=== PATIENT | female | born 1940 | race Caucasian/White ===

== ENCOUNTER 2019-09-28 16:42 | Inpatient (IN) | payer OTHER, MEDICARE ==
[~2019-09-28] VITALS: Ht 152.4 cm; Wt 56.6 kg
[2019-09-28 16:55] VITALS: BP 115/52
[2019-09-28 17:14] LABS: URINE BILIRUBIN NEGATIVE (Negative); URINE BLOOD NEGATIVE (Negative); URINE CLARITY CLEAR; URINE COLOR YELLOW; URINE GLUCOSE-RANDOM* NEGATIVE (Negative); URINE KETONES NEGATIVE (Negative); URINE LEUKOCYTES-REFLEX TRACE (Negative); URINE NITRITE-REFLEX NEGATIVE (Negative); URINE PROTEIN (DIPSTICK) NEGATIVE (Negative); URINE SPECIFIC GRAVITY 1.025 (1.005-1.035); URINE UROBILINOGEN 0.2 E.U./dl (0.2-1.0)
[2019-09-28 17:17] LABS: ABSOLUTE NEUTROPHILS 3.7 thou/uL (1.4-8.2); BASOPHILS 0.7 % (0.0-2.0); EOSINOPHILS 0.8 % (0.0-3.0); HEMATOCRIT 36.8 % (37.0-47.0); HEMOGLOBIN 12.1 gm/dL (12.0-15.0); LYMPHOCYTES 25.6 % (24.0-44.0); MCH 30.1 pg (26.0-34.0); MCV 91.1 fL (80.0-100.0); MONOCYTES 10.4 % (1.0-8.0); PLATELET COUNT 296 thou/uL (150-400); POLYS 62.5 % (36.0-66.0); RBC 4.04 mil/uL (4.20-5.00); RDW 13.1 % (10.5-14.5)
[2019-09-28 17:25] LABS: CALCIUM 9.5 mg/dL (8.5-10.1); CREATININE 0.8 mg/dL (0.6-1.0); POTASSIUM 3.4 mmol/L (3.5-5.1)
[2019-09-28 17:36] LABS: ALBUMIN 3.3 g/dL (3.4-5.0); TOTAL BILIRUBIN 0.4 mg/dL (<0.1-1.0); TOTAL PROTEIN 7.6 g/dL (6.4-8.2)
[2019-09-28 20:31] VITALS: BP 136/65
[2019-09-28 20:47] VITALS: BP 148/70
[2019-09-28 21:00] VITALS: BP 148/70
[2019-09-28] MEDS ORDERED: LIPITOR 20 MG T20 M1 PO (21:17)
[2019-09-28] MEDS ORDERED: NORVASC 2.5 MG2.5 M1 PO (21:17)
[2019-09-28] MEDS ORDERED: KEFLEX500 M2 PO (21:18)
[2019-09-28] MEDS ORDERED: NADOLOL 40 MG T40 M1 PO (21:19)
[2019-09-28] MEDS ORDERED: REMERON30 MG PO (21:19)
[2019-09-28] MEDS ORDERED: TRAZODONE HCL50 MG PO (21:20)
[2019-09-28] MEDS ORDERED: RISPERDAL0.5 MG PO (21:21)
[2019-09-28] MEDS ORDERED: B-12 DOTS500 MCG PO (21:21)
[2019-09-28] MEDS ORDERED: ACIDOPHILUS LA1 EAC1 PO (21:21)
--- NOTE | 2019-09-28 22:28 | NUR ---
Patient admitted from [facility] ED for eval and tx due to increased confusion, screaming, rubbing her arms/legs, anxiety, depression and refusing to take her medications. Patient arrived to the unit with friend Marisol and nutrition tech by ambulation. Patient appeared anxious upon arrival. Asking Marisol about her clothing several times, asking to use the phone, making several complaints about the clothing available on the unit. Marisol re-enforced that she will be visiting in the AM and bringing her clothing. Patient needed distracted while nutrition tech walked Marisol off the unit. Patient standing with her arms crossed, rubbing her arms continuously. Patient walked to her room to complete assessment. Patient alert and oriented x4. Denies anxiety, depression, SI/HI/AH/VH. Patient visibly anxious. Patient irritable, frustrated and labile during assessment. Nurse would ask a question then patient would interupt and demand socks, drink, new pants, Kleenex, etc. Nurse told patient several times that after assessment, nurse would provide her with hygiene products and new clothing. After assessment, nurse provided patient with all standard hygiene products and clothing. Patient then complained about hospital pants and gown provided. Doesn't appear that patient is pleased with anything provided this evening. When asked why patient was here, she stated that she did not take her medications when she got home from d/c on 09/25/19 on this unit. Nurse asked patient if she felt better during admission when she took her medicine, patient said yes. Nurse asked why she didn't take the medication at home. Patient responded "I just didn't want to". Patient stubborn and sarcastic during assessment. Dr. Gutierrez provided admission orders. HS medication was provided to patient. Patient stated nurse was trying to kill her and needed to learn about how some medications aren't supposed to be taken together. Patient educated that Dr. Gutierrez provided the medication orders and is well aware of how medications interact. Patient resistant but did take medications. [place] thoughts noted, blunted/labile/suspicious affect. Patient has been forgetful at times. Patient provided cup of ice water. As nurse was leaving her room, patient stated "you go get me water, I drink a lot!". Patient educated that her water has already been provided and is sitting on her nightstand. Patient scoffed then layed down in bed. Denies pain or discomfort, surprisingly. Patient fixated on diagnosis of interstitial cystitis during last admission and her chronic pain. Patient did sign paperwork for admission despite being verbally opposed to admission. Patient resting quietly in bed at this time.
--- NOTE | 2019-09-29 08:47 | NUR ---
SW completed the intake assessment and TP. Pt is well known to this conventional underwriter from her previous admission. Pt refused to follow the discharge recomendations . It will be recomended this admission for AL placement in a memory care unit.
[2019-09-29 09:50] VITALS: BP 155/65
--- NOTE | 2019-09-29 11:10 | NUR ---
ASSUMED CARE AT 0700 THIS MORNING. PT. UP FOR MEALS. SHE TOOK HER MEDS WITH SOME STAFF INSISTANCE. LATER SHE COMPLAINED SHE DID NOT LIKE THE WAY THE MEDICATIONS MADE HER FEEL. HER ROOMMATE, MOSHE, VISITED AT MORNING VISITING TIME AND BROUGHT SOME CLOTHING FOR THE PATIENT. I TALKED TO BOTH OF THE WOMEN THAT 2 OUTFITS IS ALL THAT IS NEEDED HERE, SHE WOULD NOT BE HERE THAT LONG. ALSO, THE LOCKERS ARE VERY LIMITED IN SPACE AND WE WOULD NOT HOUSE MORE THAN 2 OUTFITS. PT. IS NOT REALLY ACCEPTING OF HER ACCOMODATIONS TODAY. SHE IS REQUESTING A PRIVATE ROOM. IT WAS EXPLAINED TO HER THAT THIS PLACE HAS LIMITED ROOMS AND PRIVATE ROOMS ARE NOT DO-ABLE.
[2019-09-29 11:16] VITALS: BP 155/65
--- NOTE | 2019-09-29 15:50 | NUR ---
Sw spoke with pt this am to inlcude her in her d/c plans. later pt's friend and roomate stated they did not want her to know. Sw reported to them that this pt is able to understand and needs to know what the plans are. Marisol and her friend are demanding of time and require constant redirection. Sw provided them with a list of AL with memory care and suggested they start looking as this pt will likely d/c Wednesday or Wed at the latest.
[2019-09-29 19:30] VITALS: BP 100/53
--- NOTE | 2019-09-30 00:33 | NUR ---
Care assumed of patient at 1915: Patient seated in her room at start of shift. Patient alert and oriented x4. Presents with blunted affect, depressed mood. Patient originally calm, pleasant and cooperative. Patient questioned if she had a "bad attitude or was disrespectful" during admission process the previous night. Patient then apologized if she caused any trouble to this nurse. This was good insight as to previous behaviors. Patient asked to come to dayroom for HS snack and socialization before bed. Patient was compliant in coming to the dayroom but isolated herself to a table and did not interact with any staff or peers. Patient became more irritable and labile as the night progressed. Patient declined HS snack. Denies pain or discomfort. Denies SI/HI/AH/VH. No s/s of delusional or paranoia behaviors observed. Patient actually denies ever having any suicidal thoughts to this nurse. She stated that she "just wanted to be heard". When asked what she wanted to be "heard", she stated "oh, you know". Then declined to answer any further questions. Avoidance of thoughts and feelings this evening. Patient provided HS medication. Patient stated the doctors are trying to kill her and if she "takes all these medications" she will sleep for days. However, patient stated she did not sleep well last night. Patient did take HS medication but was resistant in doing so. Patient was able to fall to sleep without difficulty and appears to be resting at this time. Patient has been up a couple times pacing her room or using the bathroom thus far this shift.
[2019-09-30 08:00] VITALS: BP 119/64
--- NOTE | 2019-09-30 08:30 | NUR ---
PT UP WALKING AROUND THE UNIT. ENCOURAGED PT TO SIT DOWN TO EAT. PT STATED THAT IS THE PROBLEM IS NOT EATING. PT TOOK MEDS WITHOUT ANY ISSUES. PT WORRIED ABOUT HER HAIR IS FALLING OUT, APPEARS TO BE THIN HAIR NO HAIR LOSS. PT THINKS ITS DUE TO MEDICATION.
[2019-09-30 09:12] VITALS: BP 119/64
--- NOTE | 2019-09-30 11:00 | NUR ---
PT FRIEND MOSHE CAME AND SEEN HER. MOSHE FIXED PT HAIR. PT STILL UPSET ABOUT HER HAIR BEING THIN.
[2019-09-30 20:54] VITALS: BP 137/69
[2019-09-30 21:33] VITALS: BP 137/69
--- NOTE | 2019-09-30 22:25 | NUR ---
185 RESUMMED CARE FROM DAY SHIFT, PATIENT IN DAY ROOM CALM COOPERATIVE. PATIENT ATE SNACK TOOK MEDICATION WITHOUT INCIDENCE, PATIENT WENT TO ROOM AND WENT TO BED. WILL CONTINUE TO MONITOR FOR SAFETY AND BEHAVIORS.
[2019-10-01 07:39] VITALS: BP 122/63
[2019-10-01 08:10] VITALS: BP 122/63
--- NOTE | 2019-10-01 09:07 | NUR ---
PT WALKING AROUND THE UNIT. PT WORRIED ABOUT GETTING A SHOWER AND FIXING HER HAIR BEFORE MOSHE COMES. PT STATED MOSHE WILL NOT DO HER HAIR AND SHE WILL BE MAD. REASURED PT THAT HER HAIR WAS DONE YESTERDAY BY MOSHE.
--- NOTE | 2019-10-01 15:33 | NUR ---
Prince spoke with marisol about the d/c plan and she reported that they would like the referrral sent to [facility] but didnt knonw which one. Prince called [facility] and spoke with Lexy and asked her to reach out the family and discuss memory care. Marisol understands the urgency to find placement. She is wants to meet with Dr Oconnell on Wednesday at 11am. Prince will try to facilitate this on Wednesday. Prince sent the referal to [facility] and [facility].
[2019-10-01 19:56] VITALS: BP 114/66
[2019-10-01 23:27] VITALS: BP 114/66
--- NOTE | 2019-10-02 02:17 | NUR ---
PATIENT HAS BEEN IN BED SINCE 1900. SHE DID AWAKE FOR HS MEDS AND ASSESSMENT. SHE HAS BEEN CALM AND COOPERATIVE. SHE DENIES SI/HI. SHE DIDN'T ASK ABOUT WHAT HER MEDS WERE TONIGHT. SHE WAS IN A HURRY TO GET BACK TO SLEEP. PATIENT HAS BEEN SLEEPING TONIGHT. SHE IS INDEPENDENT WITH CARES. CONTINUING TO MONITOR WITH REGULAR ROUNDING AND PRN NEEDED.
[2019-10-02 09:08] VITALS: BP 117/65
[2019-10-02 10:01] VITALS: BP 117/65
--- NOTE | 2019-10-02 11:07 | NUR ---
11:05 RESUMMED CARE FROM OVERNIGHT SHIFT AT 0645 AM, PATIENT UP IN DAY ROOM. PATIENT ATE BREAKFAST AND TOOK MEDICATION WITHOUT INCIDENCE. PATIENT LIKE HER MEDICATION TO BE IDENTIFIED BEFORE SHE TAKES THEM. PATIENT COOPERATIVE, CALM PARTICIPATES IN GROUPS. PATIENT'S FRIEND CAME TO DO HAIR DURING VISITING HOURS, PATIENT DENIES ANY SI/HI AT PRESENT. WILL CONTINUE TO MONITOR PATIENT FOR SAFETY AND BEHAVIORS.
--- NOTE | 2019-10-02 14:09 | NUR ---
LUIS and Dr Oconnell met with Nickolas and pt's friend to discuss medications and d/c planning. Dr Oconnell educated nickolas about the changes that are made and why AL is important. They also want to see Dr Oconnell in oupt at the end of the month. They feel like they are being rushed to find placement. LUSI and Dr Oconnell reported about the acute psych setting and that the pt needs structure and medical care. Nickolas asked sw to send referral to [facility]. Nickolas and friend seemed satisfied with this information.
--- NOTE | 2019-10-02 14:35 | NUR ---
[facility] does not have memory care so would not meet this pt's needs. Prince called [facility] [phone] [facility] and sent the referral after levaing a VM with Marisol about the [facility].
[2019-10-02 20:12] VITALS: BP 163/65
--- NOTE | 2019-10-03 03:33 | NUR ---
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 SHE WAS LYING IN BED AT THAT TIME, AND HAS REMAINED SO UP UNTIL THIS TIME EXCEPT FOR TOILETING. PLEASANT AND COOPERATIVE WITH ASSESSMENT PROCESS. TOOK ALL MEDS WHOLE WITHOUT DIFFICULTY. NO APPARENT DISTRESS. NO C/O. WILL CONTINUE TO MONITOR
[2019-10-03 06:46] LABS: HEMATOCRIT 35.5 % (37.0-47.0); HEMOGLOBIN 11.8 gm/dL (12.0-15.0); MCH 30.2 pg (26.0-34.0); MCHC 33.2 g/dL (28.0-37.0); MCV 90.7 fL (80.0-100.0); RBC 3.92 mil/uL (4.20-5.00); RDW 12.7 % (10.5-14.5); WBC 5.6 thou/uL (4.0-11.0)
[2019-10-03 07:03] LABS: CREATININE 0.7 mg/dL (0.6-1.0); POTASSIUM 3.7 mmol/L (3.5-5.1)
[2019-10-03 07:35] VITALS: BP 93/51
[2019-10-03 11:07] VITALS: BP 93/56
--- NOTE | 2019-10-03 17:49 | NUR ---
LUIS recieved a VM that pt was accepted at [facility] but family is still visiting sister communities and have [facility] as the #1 choice. That assesment will be completed tomorrow 10/04 at 10:30 am.
[2019-10-03 20:00] VITALS: BP 125/68
--- NOTE | 2019-10-04 02:41 | NUR ---
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 SHE HAS SPENT THE EVENING IN HER ROOM. PLEASANT AND COOPERATIVE WITH ASSESSMENT PROCESS AND WITH MEDS. DOES LIKE TO HAVE MEDS EXPLAINED, WHICH WAS DONE BY THIS NURSE. DECLINED HER NADOLOL FROM HOME, STATING HER BP WAS NOT HIGH ENOUGH TO TAKE IT. NO C/O. NO APPARENT DISTRESS. WILL CONTINUE TO MONITOR
[2019-10-04 09:10] VITALS: BP 139/70
--- NOTE | 2019-10-04 12:32 | EKG ---
[facility] [place] [address] ELECTROCARDIOGRAM REPORT Name: KIMI GARCIA Room #: [facility]-A ADM IN M.R.#: [id number] Admission: 09/28/19 Attend Phys: Alvina Oconnell MD Discharge: Date of : 40 Report #: [id number] THIS REPORT FOR: cc: FAM - No family physician/PCP FAM - No family physician/PCP Roberto Medina MD [facility] ~ THIS REPORT FOR: //name// [facility] ED Test Date: 2019-09-28 Test Time: 18:27:08 Pat Name: KIMI GARCIA Department: Room: [facility] Gender: F Hand Kiss Setter: grace : 1940 Requested By: Robert Jaffe Order Number: [id number] MD: Roberto Medina Measurements Intervals [place] Rate: 71 P: 60 DE: 107 QRS: 43 QRSD: 86 T: 54 QT: 395 QTc: 430 Interpretive Statements Sinus rhythm No significant abnormality No previous ECG available for comparison Electronically Signed On 09-29-2019 8:56:40 LIBRARY MEDIA SPECIALIST by Roberto Medina [email or web address] <ELECTRONICALLY SIGNED> By: Roberto Medina MD, FACC 09/29/19 0856 [id number] Roberto Medina MD, [facility] /EPI
--- NOTE | 2019-10-04 15:12 | NUR ---
[place] Prince did not have the correct rep for the level of care pt needs assess pt; a new rep did not show. LUIS did not get a return call either. It was discussed in tx team that if [facility] denied pt that she will need to go with [facility] as they have accepted her referral. SW team contacted [facility] who said they have been attempted to connect with Marisol without luck. SW contacted Marisol. No Answer. Lft msg. SW team will continue to follow pt during her stay on this unit.
--- NOTE | 2019-10-04 17:17 | NUR ---
ASSUMED CARE AT 0700 THIS MORNING. PT. UP ON UNIT FOR MEALS. FRIEND, MOSHE, VISITED DURING EACH VISITATION. MOSHE BROUGHT A TWEEZERS WITH HER IN THE AFTERNOON VISITING TIME. SHE DID LEAVE WITH THESE. MOSHE ALSO TOOK HOME SOME CLOTHING TO WASH FOR THE PT. PT. ATTENDED ALL GROUPS TODAY. SHE WAS PLEASANT AND COOPERATIVE WITH THIS CHIROPRACTIC DOCTOR. SHE CONTINUES TO HAVE A FLAT AFFECT AND DEPRESSED EXPRESSION ON HER FACE. SHE WAS COOPERATIVE WITH TAKING HER MEDICATIONS TODAY WITHOUT DIFFICULTIES. SHE CONTINUES TO BE INTRUSIVE WITH SOME OF HER PEERS, ATTEMPTING TO HELP THEM THROUGH THINGS AND NOT LETTING STAFF HANDLE THE SITUATION. SHE HAS TO BE REMINDED THAT THE STAFF NEEDS TO HANDLE THE SITUATIONS OUT IN THE [place].
[2019-10-04 17:27] VITALS: BP 139/70
[2019-10-04 19:25] VITALS: BP 114/57
--- NOTE | 2019-10-05 04:03 | NUR ---
Assumed care of pt @ 1900. Pt calm et cooperative with pleasant demeanor this shift. Took medications whole without difficulty. VSWNL. Health assessment with no abnormalities at present time. Ambulates the halls ad rossana with steady gait. No behaviors noted this shift. Denies SI/HI @ present time. Isolated in room with roommate most of beginning of shift. Currently resting in bed with eyes closed. Will continue to monitor per protocol.
[2019-10-05 08:15] VITALS: BP 103/62
--- NOTE | 2019-10-05 08:29 | NUR ---
PT TOOK AM MEDS. DIDN'T GIVE BP MED DUE TO LOWER BP THIS AM.
--- NOTE | 2019-10-05 10:33 | NUR ---
Pt was visited by Rosalie Phoenix in the [facility] and they only have [place] available. The rep took Sw business card and is looking to find an AL or Al memory care. Sw received a VM from [facility] [place] and faxed the referral packet and set up a assessment for this PM. Sw also retruned the email for [facility] and pt also signed a FILI for [facility] to particiapte in medical records communication. This was placed in the chart.
--- NOTE | 2019-10-05 11:14 | NUR ---
Prince sent a referral to [facility]
[2019-10-05 13:16] VITALS: BP 103/62
--- NOTE | 2019-10-05 15:13 | NUR ---
PRINCE received confirmation that pt will d/c to [facility] on 10/06 at noon. PRINCE completed the POC and Dr Oconnell and this was faxed with meds list. Pt declined to sign the DNR. PRINCE made packet and reported d/c to nursing. Prince confimred this with an email to [facility].
[2019-10-05 19:30] VITALS: BP 155/59
--- NOTE | 2019-10-06 04:08 | NUR ---
Assumed care of pt @ 1900. Pt calm, cooperative with pleasant demeanor. Took medications whole without difficulty. Ambulates halls ad rossana with steady gait. Denies SI/HI. VSWNL. B/P mildly elevated but took home B/P med at HS per orders. Pt refused to take Trazodone this PM. Pt states that physician told her to not take the Trazodone with her Remeron. Advised pt that since physician did not put a hold on the medication or d/c it, it would be considered a refusal. Pt verbalized understanding. Currently resting in bed with eyes closed. Will continue to monitor per protocol.
[2019-10-06 08:00] VITALS: BP 112/55
--- NOTE | 2019-10-06 08:39 | NUR ---
PT TOOK MEDS THIS AM, HELD BP MEDS DUE TO LOWER BP 112/55, 72.
[2019-10-06 08:42] VITALS: BP 103/62
[2019-10-06] MEDS ORDERED: REMERON45 M1 PO (10:50)
[2019-10-06] MEDS ORDERED: RISPERDAL 1 MG T1 MG PO (10:51)
--- NOTE | 2019-10-06 11:06 | NUR ---
SW faxed the d/c orders and summary to [facility] this included DA 124 C. Sw also updated packet.
--- NOTE | 2019-10-06 13:20 | NUR ---
GAVE REPORT TO [facility] AT [facility]. PT LEFT WITH DAUGHTER AND HER FRIEND MOSHE, PERSONAL BELONGINGS GIVEN BACK TO PATIENT. PT RECIEVED HOME MEDICATION.
== END 2019-10-06 12:38 | DRG 885 ==
LOC: ER 16:42 → EROBS 20:12 → SBH 20:12
PROVIDERS: Emergency Medicine; Internal Medicine; ADMIT Psychiatry & Neurology Psychiatry
DX: F32.3 Major depressive disorder, single episode, severe with psychotic features (principal); R45.851 Suicidal ideations; F41.9 Anxiety disorder, unspecified; E78.5 Hyperlipidemia, unspecified; I10 Essential (primary) hypertension; G31.84 Mild cognitive impairment of uncertain or unknown etiology; N30.10 Interstitial cystitis (chronic) without hematuria; Z90.710 Acquired absence of both cervix and uterus; Z90.49 Acquired absence of other specified parts of digestive tract; Z79.899 Other long term (current) drug therapy; Z88.1 Allergy status to other antibiotic agents; Z88.0 Allergy status to penicillin
CPT/HCPCS: 10880

== ENCOUNTER 2020-01-09 14:31 | Inpatient (IN) | payer OTHER, MEDICARE ==
[~2020-01-09] VITALS: Ht 152.4 cm; Wt 48.3 kg
[~2020-01-09 14:31] MED LIST: ACIDOPHILUS LA1 EAC1 PO; ACIDOPHILUS1 EAC4 PO; B-12 DOTS500 MCG PO; B-12500 MCG PO; CORGARD40 M1 PO; KEFLEX500 M2 PO; LIPITOR 20 MG T20 M1 PO; NADOLOL 40 MG T40 M1 PO; NORVASC 2.5 MG2.5 M1 PO; REMERON 30 MG T30 M1 PO; REMERON15 M2 PO; REMERON30 MG PO; REMERON45 M1 PO; RISPERDAL 1 MG T1 MG PO; RISPERDAL0.5 MG PO; TRAZODONE HCL50 MG PO; XANAX 0.25 MG0.25 MG PO
[2020-01-09 14:32] VITALS: BP 145/96
[2020-01-09] MEDS ORDERED: BISACODYL10 MG RECTAL (14:42)
[2020-01-09] MEDS ORDERED: MIRALAX119 GM PO (14:44)
[2020-01-09 15:13] LABS: ABSOLUTE NEUTROPHILS 4.7 thou/uL (1.4-8.2); BASOPHILS 0.7 % (0.0-2.0); EOSINOPHILS 0.4 % (0.0-3.0); HEMATOCRIT 36.3 % (37.0-47.0); HEMOGLOBIN 12.3 gm/dL (12.0-15.0); LYMPHOCYTES 12.1 % (24.0-44.0); MCH 30.5 pg (26.0-34.0); MCHC 33.9 g/dL (28.0-37.0); MCV 90.1 fL (80.0-100.0); MONOCYTES 6.8 % (1.0-8.0); PLATELET COUNT 267 thou/uL (150-400); RBC 4.03 mil/uL (4.20-5.00); RDW 13.2 % (10.5-14.5); WBC 5.9 thou/uL (4.0-11.0)
[2020-01-09 15:25] LABS: CALCIUM 10.3 mg/dL (8.5-10.1); CREATININE 1.2 mg/dL (0.6-1.0); POTASSIUM 3.1 mmol/L (3.5-5.1)
[2020-01-09 15:28] LABS: ALBUMIN 3.1 g/dL (3.4-5.0); TOTAL BILIRUBIN 0.6 mg/dL (<0.1-1.0); TOTAL PROTEIN 6.7 g/dL (6.4-8.2)
[2020-01-09] MEDS ORDERED: REMERON30 MG PO (15:52)
[2020-01-09] MEDS ORDERED: RISPERDAL 1 MG T1 MG PO (15:52)
[2020-01-09] MEDS ORDERED: MILK OF MA400 MG/5 M PO (15:54)
[2020-01-09 16:46] LABS: URINE BILIRUBIN NEGATIVE (Negative); URINE BLOOD TRACE (Negative); URINE CLARITY CLOUDY; URINE COLOR YELLOW; URINE GLUCOSE-RANDOM* NEGATIVE (Negative); URINE KETONES NEGATIVE (Negative); URINE LEUKOCYTES-REFLEX TRACE (Negative); URINE NITRITE-REFLEX NEGATIVE (Negative); URINE PROTEIN (DIPSTICK) NEGATIVE (Negative); URINE SPECIFIC GRAVITY 1.015 (1.005-1.035); URINE UROBILINOGEN 0.2 E.U./dl (0.2-1.0)
[2020-01-09 18:14] VITALS: BP 146/91
--- NOTE | 2020-01-09 18:40 | NUR ---
See paper charting for sitter observation.
[2020-01-09 18:47] VITALS: BP 125/66
[2020-01-09 19:50] VITALS: BP 150/61
[2020-01-10] VITALS: BP 124/68
[2020-01-10 05:56] LABS: CALCIUM 9.6 mg/dL (8.5-10.1); CREATININE 0.8 mg/dL (0.6-1.0); POTASSIUM 3.3 mmol/L (3.5-5.1)
--- NOTE | 2020-01-10 08:05 | EKG ---
[facility] [place] [place] [address] ELECTROCARDIOGRAM REPORT Name: KIMI GARCIA Room #: [facility]- ADM IN M.R.#: [id number] Admission: 01/09/20 Attend Phys: Romaine Gutierrez DO Discharge: Date of : 40 Report #: [id number] THIS REPORT FOR: cc: BAYLEE OSORIO MD Physician not on staff Roberto Medina MD [facility] ~ THIS REPORT FOR: //name// [facility] ED Test Date: 2020-01-09 Test Time: 15:06:47 Pat Name: KIMI GRACIA Department: Room: [facility] Gender: F Computational Linguist: eboni : 1940 Requested By: Felisa Hamm Order Number: [id number] MD: Roberto Medina Measurements Intervals [place] Rate: 87 P: 69 AL: 116 QRS: 36 QRSD: 131 T: 26 QT: 368 QTc: 443 Interpretive Statements Sinus rhythm Borderline short AL interval Compared to ECG 09/28/2019 18:27:08 No significant change was found Electronically Signed On 01-10-2020 8:03:37 CDT by Roberto Medina [email or web address] <ELECTRONICALLY SIGNED> By: Roberto Medina MD, [facility] 01/10/20 0803 [id number] Roberto Medina MD, [facility] /EPI
[2020-01-10 09:38] VITALS: BP 91/49
--- NOTE | 2020-01-10 16:17 | NUR ---
Sw completed the intake assessment and TP. This is pt is familiar to this worker. it is expected that she will return to [facility] when she ready to d/c. Pt is curently recieving outpt services with Dr Oconnell.
--- NOTE | 2020-01-10 17:12 | NUR ---
HAS BEEN RESTLESS,PACING IN HALLWAYS-ANXIOUS FACIAL EXPRESSION-SENDING ROOMMATE TO NURSES STATION TO REQUEST VARIOUS ITEMS INCLUDING EXTRA TOILET PAPER BECAUSE "ONE ROLE ISN'T ENOUGH IF YOU GO ALOT" RUMINATIVE REGARDING BOWELS-ORIENTED TO PERSON AND PLACE -TO DATE. AM BP MEDICATIONS HELD FOR BP 91/49. PT DENIES DIZZINESS,LIGHTHEADNESS AND GAIT IS STEADY. DENIES SI/SH. MINIMAL SOCIAL INTERACTION WITH PEER GROUP.
[2020-01-10 19:44] VITALS: BP 115/68
--- NOTE | 2020-01-11 02:19 | NUR ---
ASSUMED CARE ON 01/10/20 @ 19:15, AMBULATING INDEPENDENTLY, IN DAY ROOM AND IN HALLS. COOPERATED WITH ASSESSMENT, HRRR, LUNGS CTA, ABD BOWEL SOUNDS NORMOACTIVE, DENIES BM TODAY OR YESTERDAY. REPORTS LOWER BACK AND R HIP PAIN. REPORTS DEPRESSION UPON THINKING AOUT WHAT SHE DID TO KILL SELF. DEPRESSION 4/10 LEVEL. ANXIETY 6/10. ANXIETY NOTED REGARDING OTHER PATIENTS WANDERING INTO HER ROOM. SLEEPING WELL AT THIS WRITING, WILL CONTINUE TO MONITOR Q 12 MINUTES FOR PATIENT SAFETY.
[2020-01-11 04:03] VITALS: BP 115/68
--- NOTE | 2020-01-11 06:10 | NUR ---
SLEPT WELL OVERNIGHT, WITH A TOTAL OF 6.8 HOURS OF SLEEP.
[2020-01-11 07:52] VITALS: BP 152/72
[2020-01-11 09:23] VITALS: BP 152/72
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
--- NOTE | 2020-01-11 11:11 | NUR ---
Dr. Oconnell gave an order for nutritional consult. The order was recieved and verified.
--- NOTE | 2020-01-11 12:57 | NUR ---
Prince called and spoke Marisol [phone]. Marisol confirmed that pt was in memory care at [facility]. They don't want this pt to be labelled suicidal due to starvation- but isnt eating because she didnt like the food at . But would eat chic filet and [employer] soups. They are afraid she won't be able to go back to , but they really like it there. PRINCE sent updates to and followe dit up with a phone call.
[2020-01-11 20:40] VITALS: BP 116/60
--- NOTE | 2020-01-12 02:32 | NUR ---
01-09-20 CARE TRANSFERED AT 1915 OBSERVED PT WALKING MOSCOSO. 2024 PT AAOX2 PRESENTS ANXIOUS WITH PARANOID, PT MAIN CONCERNS IS THAT MEN COULD WANDER INTO ROOM, PT WAS REASSURED THAT PRE SALES TECHNICAL CONSULTANT WOULD BE DOING 12MIN ROUNDS AND THEN NURSING DOES ROUNDS. AFTER NURSING ASSESSMENT, PT LAYDOWN IN BED AND ALEJANDRA WAS PLACED WITHIN REACH, BED IN LOWEST POSITION, LOCKED WITH ALARM ON. DURING NURSING ROUNDS NOTED PT WAS RESTING COMFORTABLE WITH EYES CLOSED. OF NOTE, PLEASE REFER TO NURSING INTERVENTIONS FOR MORE INFORMATION. ZERO ACUTE DISTRESS NOTED.
[2020-01-12 07:15] VITALS: BP 132/63
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
[2020-01-12 19:29] VITALS: BP 127/75
[2020-01-12 22:00] VITALS: BP 127/75
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
[2020-01-13 07:40] VITALS: BP 128/64
[2020-01-13 19:35] VITALS: BP 105/55
--- NOTE | 2020-01-14 05:08 | NUR ---
Assumed care of pt @ 1900. Pt calm et cooperative this shift. Took medications whole without difficulty. Ambulates the halls ad rossana with steady gait. Socialized in room with rommate most of shift. VSWNL. Health assessment with no abnormalities noted at present time. Denies SI/HI. Currently resting in bed with eyes closed. Will continue to monitor per protocol.
[2020-01-14 07:45] VITALS: BP 149/79
[2020-01-14 08:52] LABS: ABSOLUTE NEUTROPHILS 2.8 thou/uL (1.4-8.2); EOSINOPHILS 0.7 % (0.0-3.0); HEMATOCRIT 37.3 % (37.0-47.0); HEMOGLOBIN 12.7 gm/dL (12.0-15.0); MCH 30.2 pg (26.0-34.0); MCHC 34.1 g/dL (28.0-37.0); MCV 88.7 fL (80.0-100.0); PLATELET COUNT 273 thou/uL (150-400); POLYS 63.3 % (36.0-66.0); RDW 13.6 % (10.5-14.5); WBC 4.5 thou/uL (4.0-11.0)
[2020-01-14 09:07] LABS: ALBUMIN 3.2 g/dL (3.4-5.0); CALCIUM 10.1 mg/dL (8.5-10.1); CREATININE 0.8 mg/dL (0.6-1.0); MAGNESIUM 1.9 mg/dL (1.8-2.4); PHOSPHORUS 3.8 mg/dL (2.5-4.9); POTASSIUM 3.1 mmol/L (3.5-5.1); TOTAL BILIRUBIN 0.6 mg/dL (<0.1-1.0); TOTAL PROTEIN 7.1 g/dL (6.4-8.2)
[2020-01-14 09:13] LABS: PROTIME 10.2 Seconds (9.3-11.4)
--- NOTE | 2020-01-14 15:00 | NUR ---
Assumed care 0700. Patient A and O x 4. Denies pain/SI/HI/AH/VH. Delusional/fearful of males on the unit says they out to do her harm with the things they put in their sacks like plastic silverware. Occasionally other pts. have wandered into her room--that is true, witnessed by staff. c/o occasional abdominal cramping which she relates to having explosive bm yesterday. No explosive BM's reported today.
--- NOTE | 2020-01-14 15:00 | NUR ---
Assumed care 0700. Patient A and O x4. Denies complaints. Denies AH/VH/SI/HI. She is very religiously preoccupied reading Bible as she walks the halls and praying on her knees on the floor. Does not socialize with peers.
[2020-01-14 19:35] VITALS: BP 144/83
--- NOTE | 2020-01-15 05:17 | NUR ---
01-14-20 CARE TRANSFERED 1914 OBSERVED PT SITTING IN DINING ROOM AT TABLE. 1954 PT AAOX2, ANXIOUS WITH PARANOID. PT DENIES ANY PAIN AND SI/SH/HI/VAH. PT REPORTED THAT SHE DOES NOT FEEL SAFE, ATTEMPT ON MULTI TIMES TO REASSURE PT THAT SHE HAS HER ALEJANDRA AND WE CAN PUT HER BED ALARM ON WHILE SHE IS SLEEPING AND EITHER I OR THE FORESTRY PROFESSOR WILL RESPONSE PROMPTLY. PT DENIED WANTING THE BED ALARM ON. PT TESTED ALEJANDRA ON SEVERAL OCCASSION AND THIS RN RESPONDED. PT SEEMED TO BE SATISIFIED WITH RESPONSE TIME. OF NOTE, PLEASE REFER TO NURSING INTERVENTIONS FOR MORE INFORMATION. ZERO ACUTE DISTRESS NOTED THROUGH NURSING ROUNDS.
[2020-01-15 07:31] VITALS: BP 145/67
[2020-01-15 15:10] VITALS: BP 145/67
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
[2020-01-15 19:52] VITALS: BP 124/56
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
[2020-01-16 10:42] VITALS: BP 124/56
--- NOTE | 2020-01-16 11:16 | NUR ---
PT WAS FOUND WALKING TOWARDS THE DAY ROOM THIS AM WHEN I CAME ON THE UNIT. PT HAD A TENSE LOOK AND DID NOT RESPON WHEN I SAID HELEMILIANO, AND THAT I WAS HER NURSE. EVENGERDAINE C/O NOT HAVING A BM IN 10 DAYS, I WAS ON STAFF ON THIS Wednesday01/13/2020. I HELPED HER TIDDY UP AFTER SHE DUNCAN A LARGE LOOSE STOOL. PT DECLINED HER SENACOT PILL, WELL WARM TEA TO STIMULATE A BM, PT IS CLIENT IS FIXATED ON A BM . RT. LG TOE IS SLIGHTLY BLACK AND BLUE NOTED ON ADMISSION AND DENIES ANY PAIN AT THIS TIME. PT IS VERY NEGATIVE AND NOT RESPONDING TO SUGGESTIONS OR PARTICIPATING IN GROUP ACTIVITYS.
[2020-01-16 11:43] VITALS: BP 168/69
--- NOTE | 2020-01-16 16:23 | NUR ---
Prince set up transportation for 11 am with [employer] Prince also called and spoke with nickolas and reported this d/c for tomorrow at 11am. She is satisfied with this outcome Sw confimred this d/c plan with nursing and [facility].
[2020-01-16 19:43] VITALS: BP 127/73
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
--- NOTE | 2020-01-16 23:50 | NUR ---
Pt. denies SI/HI/AH/VH. Pt. is alert and oriented x 4 and gives correct details regarding her discharge plan.
[2020-01-17 03:50] VITALS: BP 127/73
--- NOTE | 2020-01-17 06:17 | NUR ---
Patient at nursing station wanting to inventory her belongings. She was told that if time permitted before end of shift that I would help her with inventory. She was persistent that I do it immediately. After 4 conversations regarding this she finally accepted that I would help her if I could before the end of my shift but that medications had to have priority. She appears anxious and annoyed.
[2020-01-17 07:45] VITALS: BP 129/68
--- NOTE | 2020-01-17 09:01 | NUR ---
SW made packet and left it on the chart. SW faxed the d/c orders and summary to [facility].
[2020-01-17] MEDS ORDERED: RISPERDAL2 MG PO ×2 (10:25→10:28)
[2020-01-17] MEDS ORDERED: SENNA-TIME S T1 EACH PO (10:27)
--- NOTE | 2020-01-17 11:05 | NUR ---
LUIS moved the transportation time from 11am to 1:30pm. Reported this to nursing.
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
== END 2020-01-17 13:30 | DRG 880 ==
LOC: ER 14:31 → SBH 16:56 → EROBS 16:56 → SBH 17:39
PROVIDERS: Internal Medicine; Nurse Practitioner Family; Physician Assistant; ADMIT Psychiatry & Neurology Psychiatry
DX: R45.851 Suicidal ideations (principal); E43 Unspecified severe protein-calorie malnutrition; F32.9 Major depressive disorder, single episode, unspecified; I10 Essential (primary) hypertension; F41.9 Anxiety disorder, unspecified; E78.5 Hyperlipidemia, unspecified; E87.6 Hypokalemia; G47.00 Insomnia, unspecified; G31.84 Mild cognitive impairment of uncertain or unknown etiology; K59.00 Constipation, unspecified; E53.8 Deficiency of other specified B group vitamins; Z68.20 Body mass index [BMI] 20.0-20.9, adult; Z79.899 Other long term (current) drug therapy; Z88.0 Allergy status to penicillin; Z88.8 Allergy status to other drugs, medicaments and biological substances; Z91.048 Other nonmedicinal substance allergy status
CPT/HCPCS: 10880

== ENCOUNTER 2020-01-23 14:16 | Emergency (ER) | payer OTHER, MEDICARE ==
[~2020-01-23] VITALS: Ht 152.4 cm; Wt 40.8 kg
[~2020-01-23 14:16] MED LIST changes: +BISACODYL10 MG RECTAL; +MILK OF MA400 MG/5 M PO; +MIRALAX119 GM PO; +RISPERDAL2 MG PO; +SENNA-TIME S T1 EACH PO
[2020-01-23 15:46] LABS: BASOPHILS 1.2 % (0.0-2.0); EOSINOPHILS 0.6 % (0.0-3.0); HEMATOCRIT 33.1 % (37.0-47.0); HEMOGLOBIN 11.4 gm/dL (12.0-15.0); LYMPHOCYTES 14.6 % (24.0-44.0); MCH 30.7 pg (26.0-34.0); MCHC 34.4 g/dL (28.0-37.0); MCV 89.2 fL (80.0-100.0); MONOCYTES 10.8 % (1.0-8.0); PLATELET COUNT 267 thou/uL (150-400); POLYS 72.8 % (36.0-66.0); RBC 3.71 mil/uL (4.20-5.00); RDW 13.4 % (10.5-14.5); WBC 6.8 thou/uL (4.0-11.0)
[2020-01-23 15:52] LABS: CALCIUM 10.2 mg/dL (8.5-10.1); CREATININE 0.8 mg/dL (0.6-1.0); POTASSIUM 3.3 mmol/L (3.5-5.1)
[2020-01-23 15:59] LABS: ALBUMIN 2.6 g/dL (3.4-5.0); TOTAL BILIRUBIN 0.4 mg/dL (0.2-1.0); TOTAL PROTEIN 6.8 g/dL (6.4-8.2)
[2020-01-23 16:52] LABS: URINE BILIRUBIN NEGATIVE (Negative); URINE BLOOD 1+ (Negative); URINE CLARITY SL CLOUDY; URINE COLOR YELLOW; URINE GLUCOSE-RANDOM* NEGATIVE (Negative); URINE KETONES NEGATIVE (Negative); URINE PROTEIN (DIPSTICK) NEGATIVE (Negative); URINE UROBILINOGEN 0.2 E.U./dl (0.2-1.0)
[2020-01-23 16:53] LABS: URINE LEUKOCYTES-REFLEX 3+ (Negative); URINE NITRITE-REFLEX POSITIVE (Negative)
[2020-01-23 17:09] LABS: CASTS None Seen /LPF (None Seen); CRYSTALS None Seen /LPF (None Seen); SQUAMOUS 0-3 Few /LPF (0-3)
[2020-01-23 17:10] LABS: BACTERIA-REFLEX >30 Many /HPF (None Seen); URINE RBC 0-2 Rare /HPF (0-2); URINE WBC-REFLEX >25 Many /HPF (0-5)
[2020-01-23] MEDS ORDERED: KEFLEX500 M1 PO (17:26)
[2020-01-23 17:44] VITALS: BP 124/89
== END 2020-01-23 17:44 | disposition home or self-care (01) ==
LOC: ER 14:16
PROVIDERS: Emergency Medicine
DX: K59.00 Constipation, unspecified (principal); N39.0 Urinary tract infection, site not specified; I10 Essential (primary) hypertension; E78.5 Hyperlipidemia, unspecified; Z88.0 Allergy status to penicillin; Z88.5 Allergy status to narcotic agent; Z88.1 Allergy status to other antibiotic agents; Z79.899 Other long term (current) drug therapy